=== PATIENT | female | born 1985 | race African-American/Black ===

== ENCOUNTER 2021-04-21 08:27 | Emergency (ER) | payer OTHER, SELFPAY ==
[2021-04-21 08:35] VITALS: BP 157/102; PULSE 70; RESP 18; TEMP 36.3; O2SAT 99
--- NOTE | 2021-04-21 08:56 | ED.EAR ---
HPI - Ear Problem General Chief complaint: Ear Stated complaint: Ear pain Time Seen by Provider: 04/21/21 08:33 Source: patient Mode of arrival: ambulatory Limitations: no limitations History of Present Illness MD Complaint: other (bilateral ear pressure, clogged snesation ) Location: bilateral (right ear is worse than left ) Duration: constant Discharge from ear: Reports no Treatment prior to arrival: none Related Data Allergies Allergy/AdvReac Type Severity Reaction Status Date / Time No Known Allergies Allergy Verified 04/21/21 08:49 Review of Systems Constitutional: Constitutional: Denies chills and Denies fever(s) ENT: Denies dysphagia, Denies dizziness, Denies nasal congestion and Denies sore throat Comments: Bilateral ear pressure and vertigo Cardiovascular: Cardiovascular: Denies chest pain, Denies rapid heart rate and Denies radiating jaw, neck or arm pain Respiratory: Respiratory: Denies cough and Denies dyspnea Musculoskeletal: Musculoskeletal: Denies arthralgias and Denies joint swelling Integumentary/Breasts: Skin/Breast: Denies rash Neurologic: Reports vertigo, Denies headache(s), Denies numbness and Denies weakness [facility] Social History Social History (Updated 04/21/21 @ 08:58 by Margi Cerda, ELEVATOR ATTENDANT) Smoking status: Current every day smoker Comments At time of signature, I agree with nursing past medical, surgical, social and family history. There is no relevant family history pertinent to the presenting complaint. Exam Const: General: no acute distress Orientation/consciousness: patient oriented x3 HENMT: Ears: TM abnormal bulging and wth effusion (Right ear is worse than left) General nose exam: Normal nares present Face and sinus: normal facial exam Mouth: Yes Normal oral and palatal mucosa present Throat: posterior oropharynx normal and uvula midline Eyes: Pupils: Equal, round and reactive pupils present Neck: Neck: normal visual inspection Resp: Effort & Inspection: normal respiratory effort Cardio: Rate: regular rate Rhythm: regular rhythm Skin: General skin exam: normal color Rashes: no rashes Neuro: General: patient oriented x3 Psych: Appearance: grossly normal Mental Status: mental status grossly normal Affect: normal affect Attitude: cooperative Course Course Emergency Course: Inform patient that there is no wax that needs to be removed. Patient agrees to take medications as prescribed. Patient agrees to proceed to emergency room if symptoms worsen. Level of Care: Express Care Visit (3) Vital Signs Vital signs: Vital Signs Temperature 36.3 C L 04/21/21 08:35 Pulse Rate 70 04/21/21 08:35 Respiratory Rate 18 04/21/21 08:35 Blood Pressure 157/102 H 04/21/21 08:35 Pulse Oximetry 99 04/21/21 08:35 Temperature 36.3 C L 04/21/21 08:35 Pulse Rate 70 04/21/21 08:35 Respiratory Rate 18 04/21/21 08:35 Blood Pressure 157/102 H 04/21/21 08:35 Pulse Oximetry 99 04/21/21 08:35 Medical Decision Making MDM Narrative Medical decision making narrative: CC patient agrees take medications as prescribed. Patient agrees to follow-up with primary care provider if symptoms not improve Vital Signs Vital Signs: Vital Signs Temperature 36.3 C L 04/21/21 08:35 Pulse Rate 70 04/21/21 08:35 Respiratory Rate 18 04/21/21 08:35 Blood Pressure 157/102 H 04/21/21 08:35 Pulse Oximetry 99 04/21/21 08:35 Temperature 36.3 C L 04/21/21 08:35 Pulse Rate 70 04/21/21 08:35 Respiratory Rate 18 04/21/21 08:35 Blood Pressure 157/102 H 04/21/21 08:35 Pulse Oximetry 99 04/21/21 08:35 Critical Care Time Critical Care Time Critical Care Time: No Discharge Plan Discharge Clinical Impression: Acute serous otitis media Qualifiers: Laterality: right Recurrence: non-recurrent Qualified Code(s): H65.01 - Acute serous otitis media, right ear Patient Disposition: Home, Self-Care Condition: Stable Instructions: Flu
== END 2021-04-21 09:16 | disposition home or self-care (01) ==
PROVIDERS: Emergency Provider Nurse Practitioner Family; PCP Nurse Practitioner Adult Health
DX: H65.01 Acute serous otitis media, right ear (principal); F17.200 Nicotine dependence, unspecified, uncomplicated
CPT/HCPCS: 99213; G0463

== ENCOUNTER 2021-06-12 08:15 | Emergency (ER) | payer OTHER, SELFPAY ==
[2021-06-12 08:22] VITALS: BP 200/130; PULSE 113; RESP 16; TEMP 37.2; O2SAT 100
--- NOTE | 2021-06-12 08:26 | ED.ABDPAIN ---
HPI - Abdominal Pain General Chief Complaint: Abdominal Pain Stated Complaint: abd pain Source: patient and RN notes reviewed Mode of arrival: ambulatory Limitations: no limitations History of Present Illness HPI narrative: 36-year-old female presented for complaint of suprapubic pain states it feels heavy and hurts she states she first noticed some low back pain approximately 1 week ago and then the suprapubic pain for a couple of days. She rates a 4 out of 10. Endorses associated dyspareunia, thick white vaginal discharge with odor, urgency and frequency. LMP 05/24/2021. Denies hematuria, dysuria. States she suspects bf of cheating and is concerned for STD. Hx bilat ovarian cysts, Left ovary removed. Related Data Allergies Allergy/AdvReac Type Severity Reaction Status Date / Time No Known Allergies Allergy Verified 04/21/21 08:49 Review of Systems Review of Systems: CONSTITUTIONAL: Denies body aches, fever, chills EYES: Denies visual changes ENT: Denies rhinorrhea, congestion CARDIOVASCULAR: Denies chest pain, palpitations, or edema. RESPIRATORY: Denies cough or dyspnea. GASTROINTESTINAL: Endorses mid low abdominal pain Denies nausea, vomiting, diarrhea, hematochezia, melena, hematemesis GENITOURINARY: Endorses vaginal discharge, dyspareunia, denies dysuria, hematuria, or CVA tenderness. SKIN: Denies rash, itching, or wounds. MUSCULOSKELETAL: Denies back pain, joint pain, or myalgia. NEUROLOGIC: Denies headache, numbness, tingling, or weakness. PSYCH: Tearful All systems reviewed & are unremarkable except as noted in HPI and below [facility] Social History Social History Smoking status: Current every day smoker Comments At time of signature, I have reviewed and agree with nursing past medical, surgical, social and family history unless otherwise noted. Please see nursing chart for further information. There is no relevant family history pertinent to the presenting complaint Exam Narrative: GENERAL: Well-appearing, in no acute distress. HEAD: Normocephalic, atraumatic. EYES: EOMI. Conjunctivae normal. ENT: Mucous membranes pink and moist. NECK: Normal AROM. Supple. No lymphadenopathy. CHEST: No respiratory distress. Clear to auscultation. HEART: Regular rate and rhythm. No murmur appreciated. Normal peripheral pulses. ABDOMEN: Tender suprapubic abdomen No guarding, rebound tenderness, asymmetry; abd soft, nondistended, normal active bowel sounds. MUSCULOSKELETAL: No bony tenderness. EXTREMITIES: Normal range of motion. No edema. SKIN: Warm, dry, no rash. Capillary refill normal. Normal skin turgor. NEURO: No focal deficits. Alert and oriented x3. Gait steady. PSYCH: Normal affect. Course Course Emergency Course: Patient is aware of diagnosis, understands and agrees to treatment plan. Anticipatory guidance given. Patient agrees to follow-up as directed and is aware of reasons to seek care at the emergency department. Portions of this record may have been created with voice recognition software Level of Care: Express Care Visit Vital Signs Vital signs: Vital Signs Temperature 99 F 06/12/21 08:22 Pulse Rate 113 H 06/12/21 08:22 Respiratory Rate 16 06/12/21 08:22 Blood Pressure 200/130 H 06/12/21 08:22 Pulse Oximetry 100 06/12/21 08:22 Temperature 99 F 06/12/21 08:22 Pulse Rate 113 H 06/12/21 08:22 Respiratory Rate 16 06/12/21 08:22 Blood Pressure 200/130 H 06/12/21 08:22 Pulse Oximetry 100 06/12/21 08:22 MDM - Abdominal Pain MDM Narrative Medical decision making narrative: Patient presenting with concern for STD. Urine specimen collected for GC, chlamydia, trich. Informed Pt will be contacted w/ results when they become available if they are positive. Discussed with patient that it takes up to 7 days for results of cultures to be released and explained that we may treat empirically at this time. Agreeable to tr
[2021-06-12] MEDS: cefTRIAXone 500 MG VIAL IM (09:05)
== END 2021-06-12 09:29 | disposition home or self-care (01) ==
PROVIDERS: Emergency Provider Nurse Practitioner Family
DX: Z20.2 Contact with and (suspected) exposure to infections with a predominantly sexual mode of transmission (principal); F17.200 Nicotine dependence, unspecified, uncomplicated; Z86.16 Personal history of COVID-19
CPT/HCPCS: 81003; 87086; 87088; 87491; 87591; 87661; 96372; 99214; G0463; J0696